=== PATIENT | male | born 1990 | race Caucasian/White ===

== ENCOUNTER 2020-06-06 13:59 | Emergency (ER) | payer OTHER ==
--- NOTE | 2020-06-06 14:32 | ED ---
General Adult HPI - General Stated complaint: [place] [employer] fell on head at work - History of Present Illness Initial comments: 30-year-old male presents to the emergency room for a chief complaint of workplace injury. Patient states a piece of concrete fell from above a doorway and hit him on the left side of the head and shoulder. No loss of consciousness. Patient was wearing hardhat. Patient does not take blood thinners. Patient states he did take 2 naproxen. Minimal headache. No nausea or light sensitivity. Patient has no other complaints at this time including shortness of breath, chest pain, abdominal pain, nausea or vomiting, or visual changes. - Related Data Allergies Allergy/AdvReac Type Severity Reaction Status Date / Time No Known Allergies Allergy Verified 06/06/20 14:33 Review of Systems ROS Statement: Those systems with pertinent positive or pertinent negative responses have been documented in the HPI. ROS Other: All systems not noted in ROS Statement are negative. General Exam General appearance: alert, in no apparent distress Head exam: Present: atraumatic (Mild tenderness in the left side of the head. No ecchymosis.), normocephalic, normal inspection Eye exam: Present: normal appearance, PERRL, EOMI. Absent: scleral icterus, c onjunctival injection, periorbital swelling ENT exam: Present: normal exam, mucous membranes moist Neck exam: Present: normal inspection, full ROM. Absent: tenderness, meningismus, lymphadenopathy Respiratory exam: Present: normal lung sounds bilaterally. Absent: respiratory distress, wheezes, rales, rhonchi, stridor Cardiovascular Exam: Present: regular rate, normal rhythm, normal heart sounds. Absent: systolic murmur, diastolic murmur, rubs, gallop, clicks GI/Abdominal exam: Present: soft, normal bowel sounds. Absent: distended, tenderness, guarding, rebound, rigid Extremities exam: Present: full ROM (Full range of motion of the left shoulder), normal capillary refill (Capillary refill less than 2 seconds, radial pulse 2+ in the left upper extremity.), other (Slight scrape and ecchymosis noted to the left shoulder blade.) Medical Decision Making - Medical Decision Making HPI and physical exam as documented. CT brain and C-spine were obtained. There is no acute fracture or dislocation evident in the cervical spine. No acute injury hemorrhage, mass effect, or midline shift. X-ray of the left shoulder showed no acute osseous abnormality. At this time patient has a contusion of the left shoulder. Otherwise can be discharged home in stable condition. No significant signs of concussion at this time. Only minimal headache without nausea or other symptoms. However I do recommend he monitors for these and if they occur he does not work. Disposition Clinical Impression: Head injury, Shoulder contusion Disposition: HOME SELF-CARE Condition: Good Instructions (If sedation given, give patient instructions): Head Injury (ED), Contusion in Adults (ED) Additional Instructions: Please take Motrin and Tylenol for pain. Please follow-up with your doctor in one to 2 days. Return to the emergency room for any worsening symptoms. If you develop severe headache, nausea, light sensitivity then do not work. Is patient prescribed a controlled substance at d/c from ED?: No Referrals: Monisha Albert MD [REFERRING] - 1-2 days Time of Disposition: 16:06
--- NOTE | 2020-06-06 15:33 | CT ---
EXAMINATION TYPE: CT brain josé sims DATE OF EXAM: 06/06/2020 COMPARISON: None available. HISTORY: Brick fell on head and left shoulder while at work. Patient was sitting and wearing a hard h at. CT DLP: 1525.7 mGycm Automated exposure control for dose reduction was used. TECHNIQUE: CT scan of the head and cervical spine are performed without contrast. FINDINGS: There is no acute intracranial hemorrhage, mass effect, or midline shift identified. The ventricles and sulci are within normal limits in size. The globes are intact and the visualized sin uses are clear. Cervical spine is visualized in its entirety from C1 through upper thoracic levels and demonstrates s atisfactory alignment without evidence of acute fracture or dislocation. Prevertebral soft tissue ap pears within normal limits. The C1-C2 articulation is unremarkable. IMPRESSION: 1. There is no acute fracture or dislocation evident in the cervical spine. 2. No acute intracranial hemorrhage, mass effect, or midline shift is seen.
--- NOTE | 2020-06-06 15:40 | XR ---
Result: Clinical History: Pain. Comparison: None available. Technique: 4 views of the left shoulder. Findings: The bone mineralization is appropriate for age. No acute fracture or dislocation is seen. The acromioclavicular and glenohumeral joints are preserve d . The humeral head is well-seated in the glenoid. The visualized lung is clear. Impression: No acute osseous abnormality.
== END 2020-06-06 16:31 | disposition home or self-care (01) ==
LOC: EC 13:59
DX: S09.90XA Unspecified injury of head, initial encounter (principal); S40.012A Contusion of left shoulder, initial encounter; W20.8XXA Other cause of strike by thrown, projected or falling object, initial encounter; Y99.0 Civilian activity done for income or pay
CPT/HCPCS: 70450; 72125; 99283